=== PATIENT | male | born 2000 | race Caucasian/White ===

== ENCOUNTER 2022-05-17 21:20 | Emergency (ER) | payer MEDICAID, OTHER ==
[~2022-05-17] VITALS: Ht 167.6 cm; Wt 86.2 kg
[2022-05-17 21:29] VITALS: BP 137/86
[2022-05-17] MEDS ORDERED: NAPR-54 PO (22:30)
[2022-05-17] MEDS ORDERED: IBUPROFEN 600 MG TAB PO ONE (22:30)
[2022-05-17] MEDS ORDERED: ACET-10509 PO (22:30)
[2022-05-17 23:10] VITALS: BP 128/86
== END 2022-05-17 23:10 | disposition home or self-care (01) ==
LOC: MED 21:20
DX: S62.397A Other fracture of fifth metacarpal bone, left hand, initial encounter for closed fracture (principal); W22.8XXA Striking against or struck by other objects, initial encounter; Y92.89 Other specified places as the place of occurrence of the external cause; Y93.89 Activity, other specified; Y99.8 Other external cause status
CPT/HCPCS: 73130; 99283